=== PATIENT | female | born 1950 | race African-American/Black ===

== ENCOUNTER → 2017-03-11 | Outpatient (CLI) | payer OTHER ==
[~2017-03-11] MED LIST: BAYER CHEWABLE81 MG PO; CENTRUM SILVER1 EAC4 PO; COREG CR20 MG PO; FEOSOL BIFERA 228 MG PO; FISH OIL 1,001000 M1 PO; HAWTHORN BERRY500 MG PO; KYOLIC PO; METAMUCIL1 EAC1 PO; NIACIN 500 MG500 M1 PO; NORVASC10 MG PO; TRIAMTERENE/HCT1 CA1 PO; VITAMINC500 PO
== END ==
LOC: BC 09:01 → RAD 09:01 → BC 19:11
DX: N63 Unspecified lump in breast (principal)

== ENCOUNTER → 2017-11-01 | Outpatient (CLI) | payer OTHER | LOC: RAD 11:10 | DX: Z12.31 Encounter for screening mammogram for malignant neoplasm of breast (principal) ==

== ENCOUNTER → 2018-02-17 | Outpatient (CLI) | payer OTHER | LOC: MRI 05:49 | DX: S43.402A Unspecified sprain of left shoulder joint, initial encounter (principal); M19.012 Primary osteoarthritis, left shoulder; M25.412 Effusion, left shoulder; X58.XXXA Exposure to other specified factors, initial encounter; Y93.89 Activity, other specified; Y92.89 Other specified places as the place of occurrence of the external cause; Y99.8 Other external cause status ==

== ENCOUNTER 2018-11-29 12:48 | Emergency (ER) | payer OTHER ==
[~2018-11-29] VITALS: Ht 167.6 cm; Wt 72.6 kg
[2018-11-29 13:25] LABS: ABSOLUTE NEUTROPHILS 7.8 thou/uL (1.4-8.2); BASOPHILS 0.4 % (0.0-2.0); EOSINOPHILS 1.2 % (0.0-3.0); HEMATOCRIT 39.5 % (37.0-47.0); HEMOGLOBIN 13.3 gm/dL (12.0-15.0); LYMPHOCYTES 18.3 % (24.0-44.0); MCH 30.9 pg (26.0-34.0); MCHC 33.7 g/dL (28.0-37.0); MCV 91.7 fL (80.0-100.0); MONOCYTES 5.9 % (1.0-8.0); POLYS 74.2 % (36.0-66.0); RBC 4.31 mil/uL (4.20-5.00); RDW 15.2 % (10.5-14.5); WBC 10.6 thou/uL (4.0-11.0)
[2018-11-29 13:33] LABS: ANION GAP 7 mmol/L (7-16); BUN 11 mg/dL (7-18); CHLORIDE 100 mmol/L (98-107); CO2 28 mmol/L (21-32); CREATININE 0.7 mg/dL (0.6-1.0); GLUCOSE 117 mg/dL (74-106); POTASSIUM 4.1 mmol/L (3.5-5.1)
[2018-11-29 13:35] LABS: SODIUM 135 mmol/L (136-145)
[2018-11-29 13:41] LABS: TROPONIN-I <0.06 ng/mL (<0.06)
[2018-11-29 14:22] LABS: PLATELET COUNT 410 thou/uL (150-400)
[2018-11-29 14:23] LABS: ANISOCYTOSIS 1+
[2018-11-29 14:50] VITALS: BP 144/65
--- NOTE | 2018-11-30 09:37 | EKG ---
[place] [address] [facility] [place] [address] ELECTROCARDIOGRAM REPORT Name: MACEYMARTINEZ PHILIP Room #: DEP [facility]#: [id number] Admission: 11/29/18 Attend Phys: Discharge: 11/29/18 Date of : 50 Report #: [id number] THIS REPORT FOR: //name// [facility] ED Test Date: 2018-11-29 Test Time: 12:57:18 Pat Name: MARTINEZ CHOUDHURY Department: Room: Gender: F Results Technician: TSTORCK : 1950 Requested By: Nimesh Daniels Order Number: [id number] MD: Jhonny Billingsley Measurements Intervals [place] Rate: 84 P: 67 [place]: 160 QRS: -19 QRSD: 98 T: 72 QT: 368 QTc: 436 Interpretive Statements Sinus rhythm Multiple ventricular premature complexes Nonspecific ST and T wave abnormality Compared to ECG 12/06/2013 19:15:25 Ventricular premature complex(es) now present Nonspecific change in the ST and T-wave segments Electronically Signed On 11-30-2018 9:37:23 [facility] CNS by Jhonny Billingsley [email or web address] <ELECTRONICALLY SIGNED> By: Jhonny Billingsley MD, [facility] 11/30/18 0937 [id number] Jhonny Billingsley MD, [facility] /EPI
== END 2018-11-29 15:09 | disposition home or self-care (01) ==
LOC: ER 12:48
PROVIDERS: Nurse Practitioner
DX: R00.2 Palpitations (principal); I10 Essential (primary) hypertension; E03.9 Hypothyroidism, unspecified

== ENCOUNTER → 2018-12-25 | Outpatient (CLI) | payer OTHER ==
--- NOTE | 2018-12-25 14:26 | 2DMMODE ---
[facility] [place] [address] 2 D/M-MODE ECHOCARDIOGRAM Name: MACEYMARTINEZ PALACIOS Room #: REG COUNTS INCLUDE 234 BEDS AT THE [facility]#: [id number] ������������� Admission: 12/25/18 ������������� Attend Phys: Jac Motley MD Discharge: ��� ������������� ��� Date of : 50 Date of Service: 12/25/18 1426 �� Report #: [id number] �������� ��������������������������������������������[id number] THIS REPORT FOR: //name// APPROVED REPORT Study performed: 12/25/2018 13:22:12 EXAM: Comprehensive 2D, Doppler, and color-flow Echocardiogram Patient Location: Out-Patient Room #: Echo lab 2 Status: routine BSA: 1.82 HR: 71 bpm BP: 124/76 mmHg Rhythm: NSR Other Information Study Quality: Good Indications Palpitations Hypertension/HDD 2D Dimensions RVDd: 30.94 mm IVSd: 10.91 (7-11mm) LVOT Diam: 22.10 (18-24mm) LVDd: 47.91 mm PWd: 10.12 (7-11mm) Ascending Ao: 27.28 (22-36mm) LVDs: 28.97 (25-40mm) Aortic Root: 28.43 mm IVC: 19.00 mm Volumes Left Atrial Volume (Systole) Single Plane 4CH: 75.18 mL Single Plane 2CH: 56.50 mL LA ESV Index: 39.00 mL/m2 Aortic Valve AoV Peak Francesco.: 1.92 m/s AO Peak Gr.: 14.72 mmHg LVOT Max P.93 mmHg LVOT Max V: 1.22 m/s CINDA Vmax: 2.43 cm2 AI Vmax: 4.36 m/s AI Love: 2.38 m/s2 AI PHT: 531.[address] [facility] [address] [place] [address] 2 D/M-MODE ECHOCARDIOGRAM Name: MARTINEZ CHOUDHURY Room #: REG COUNTS INCLUDE 234 BEDS AT THE [facility]#: [id number] ������������� Admission: 12/25/18 ������������� Attend Phys: Jac Motley MD Discharge: ��� ������������� ��� Date of : 50 Date of Service: 12/25/18 1426 �� Report #: [id number] �������� ��������������������������������������������[id number] Mitral Valve E/A Ratio: 0.7 MV Decel. Time: 197.15 ms MV E Max Francesco.: 0.70 m/s MV A Francesco.: 1.05 m/s MV PHT: 57.17 ms IVRT: 115.34 ms Pulmonary Valve PV Peak Francesco.: 1.02 m/s PV Peak Gr.: 4.17 mmHg Pulmonary Vein P Vein S: 0.51 m/s P Vein A: 0.34 m/s P Vein D: 0.38 m/s P Vein A Dur.: 101.5 msec P Vein S/D Ratio: 1.34 Tricuspid Valve TR Peak Francesco.: 2.53 m/s TR Peak Gr.: 25.68 mmHg PA Pressure: 30.00 mmHg Left Ventricle The left ventricle is normal size. There is normal LV segmental wall motion. There is normal left ventricular wall thickness. The left ventricular systolic function is normal. The left ventricular ejection fraction is within the normal range. LVEF is 60-65%. Grade I - abnormal relaxation pattern. Right Ventricle The right ventricle is normal size. The right ventricular systolic function is normal. Atria Left atrium is dilated. Right atrium is at the upper limits of normal. Aortic Valve The aortic valve is normal in structure. Mild aortic regurgitation. There is no aortic valvular stenosis. Mitral Valve The mitral valve is normal in structure. Mild mitral regurgitation. No evidence of mitral valve stenosis. Tricuspid Valve The tricuspid valve is normal in structure. There is trace tricuspid [address] [address] 2 D/M-MODE ECHOCARDIOGRAM Name: MARTINEZ CHOUDHURY PHILIP Room #: REG CL [facility]#: [id number] ������������� Admission: 12/25/18 ������������� Attend Phys: Jac Motley MD Discharge: ��� ������������� ��� Date of : 50 Date of Service: 12/25/18 1426 �� Report #: [id number] �������� ��������������������������������������������[id number] regurgitation. Estimated PAP 30 mmHg. There is no pulmonary hypertension. Pulmonic Valve The pulmonary valve is normal in structure. Trace pulmonic regurgitation. Great Vessels The aortic root is normal in size. IVC is normal in size and collapses >50% with inspiration. Pericardium There is no pericardial effusion. <Conclusion> The left ventricle is normal size. There is normal left ventricular wall thickness. The left ventricular systolic function is normal. Grade I - abnormal relaxation pattern. The right ventricle is normal size. Left atrium is dilated. Mild aortic regurgitation. Mild mitral regurgitation. There is trace tricuspid regurgitation. Estimated PAP 30 mmHg. ��������������������������������������������� <ELECTRONICALLY SIGNED> ���������������������������������������� By: Jac Motley MD ��������������������������������������������� 12/25/18 1426 1426 1426 Jac Motley MD /INF
--- NOTE | 2018-12-25 15:04 | EXE ---
[facility] [place] [address] STRESS ECHOCARDIOGRAM Name: MARTINEZ CHOUDHURY Room #: REG CL [facility]#: [id number] ������������� Admission: 12/25/18 ������������� Attend Phys: Jac Motley MD Discharge: ��� ������������� ��� Date of : 50 Date of Service: 12/25/18 1503 �� Report #: [id number] �������� ��������������������������������������������[id number] THIS REPORT FOR: //name// APPROVED REPORT Study performed: 12/25/2018 13:43:23 Exam: Stress Echocardiogram Indication: Palpitations , Hypertension Patient Location: Out-Patient Stress Nurse: Tammy Leal RN Room #: Echo lab 2 Status: routine Ht: 5 ft 6 in HR: 71 bpm BP: 124/76 mmHg Rhythm: NSR Medical History Medical History: HTN Allergies: No known drug allergies Cardiac Risk Factors: HTN, FHX of CAD Exercise History: Physically active Procedure The patient underwent an Exercise Stress Test using the Dandy Protocol. Blood pressure, heart rate, and EKG were monitored. An Echocardiogram was performed by ecg technician in four stages in quad fashion. At peak stress, four selected images were obtained and placed side by side with resting images for comparison. Stress Test Details Stress Test: Exercise stress testing was performed using a Dandy protocol. HR Resting HR: 71 bpm Max Heart Rate (APMHR): 152 bpm Max HR Achieved: 162 bpm Target HR (85% APMHR): 129 bpm % of APMHR: 106 Recovery HR: 82 bpm HR response to stress: Normal HR response to stress BP Resting BP: 124/76 mmHg Max BP: 180/82 mmHg Recovery BP: 124/[address] [facility] [address] [place] [address] STRESS ECHOCARDIOGRAM Name: MARTINEZ CHOUDHURY Room #: REG CL [facility]#: [id number] ������������� Admission: 12/25/18 ������������� Attend Phys: Jac Motley MD Discharge: ��� ������������� ��� Date of : 50 Date of Service: 12/25/18 1503 �� Report #: [id number] �������� ��������������������������������������������[id number] BP response to stress: Normal blood pressure response to stress. ECG Resting ECG: Sinus Rhythm Stress ECG: Sinus Rhythm, nonspecific ST-T abnormalities ST Change: Non-ischemic Clinical Reason for Termination: Maximal effort Exercise duration: 6 min 17 sec Highest Stage Achieved: Stage 3: 3.4 mph at 14% grade. Exercise capacity: 7.7 METs Overall Exercise Capacity for Age: Average Pre-Stress Echo The resting Echocardiogram showed normal left ventricular contractility with an estimated Ejection Fraction of about >55%. Normal wall motion in all segments on baseline images. Post-Stress Echo The stress Echocardiogram showed normal left ventricular contractility with an estimated Ejection Fraction of about 60-65%. Normal augmentation of wall motion in all segments on post stress images. Clinical Normal augmentation of myocardial wall segments using a 17 segment model. No clinical or ECG evidence for ischemia. Conclusion Clinical Response: Non-ischemic Exercise Capacity: Average Stress ECG Response: Non-ischemic Stress Echo Images: Non-ischemic The left ventricle is normal in size and wall thickness in both the rest and stress images. No prior study available for comparison. Other Information Study Quality: Good <Conclusion> [facility] [address] [place] [address] STRESS ECHOCARDIOGRAM Name: MARTINEZ CHOUDHURY [id number] ������������� Admission: 12/25/18 ������������� Attend Phys: Jac Motley MD Discharge: ��� ������������� ��� Date of : 50 Date of Service: 12/25/18 1503 �� Report #: [id number] �������� ��������������������������������������������[id number] The left ventricle is normal in size and wall thickness in both the rest and stress images. ��������������������������������������������� <ELECTRONICALLY SIGNED> ���������������������������������������� By: Jac Motley MD ��������������������������������������������� 12/25/18 1503 150 150 Jac Motley MD /INF
== END ==
LOC: CV 12:59
DX: I08.0 Rheumatic disorders of both mitral and aortic valves (principal); I10 Essential (primary) hypertension; Z82.49 Family history of ischemic heart disease and other diseases of the circulatory system

== ENCOUNTER → 2019-01-26 | Outpatient (CLI) | payer OTHER | LOC: RAD 09:13 | DX: Z12.31 Encounter for screening mammogram for malignant neoplasm of breast (principal) ==

== ENCOUNTER → 2019-09-25 | Outpatient (CLI) | payer OTHER | LOC: CAT 08:53 | DX: Z13.6 Encounter for screening for cardiovascular disorders (principal); E78.00 Pure hypercholesterolemia, unspecified; I25.10 Atherosclerotic heart disease of native coronary artery without angina pectoris ==

== ENCOUNTER → 2019-11-20 | Outpatient (CLI) | payer OTHER | LOC: ULTRA 08:21 | DX: K76.0 Fatty (change of) liver, not elsewhere classified (principal); K76.89 Other specified diseases of liver ==

== ENCOUNTER → 2020-05-09 | Outpatient (CLI) | payer OTHER | LOC: BC 09:00 | PROVIDERS: ATTEND Family Medicine | DX: Z12.31 Encounter for screening mammogram for malignant neoplasm of breast (principal) ==

== ENCOUNTER → 2020-08-25 | Outpatient (CLI) | payer OTHER | LOC: SJCVC 10:19 | PROVIDERS: ATTEND Internal Medicine Cardiovascular Disease | DX: I10 Essential (primary) hypertension (principal); E78.00 Pure hypercholesterolemia, unspecified; I35.1 Nonrheumatic aortic (valve) insufficiency; R00.2 Palpitations; R60.9 Edema, unspecified; Z79.899 Other long term (current) drug therapy ==

== ENCOUNTER → 2021-05-19 | Outpatient (CLI) | payer OTHER | END | disposition home or self-care (01) | LOC: ULTRA 05-13 08:53 | PROVIDERS: ATTEND Family Medicine | DX: R10.13 Epigastric pain (principal) ==

== ENCOUNTER → 2021-05-25 | Outpatient (CLI) | payer OTHER | LOC: BC 09:00 | PROVIDERS: ATTEND Family Medicine | DX: Z12.31 Encounter for screening mammogram for malignant neoplasm of breast (principal) ==

== ENCOUNTER → 2021-08-18 | Outpatient (CLI) | payer OTHER ==
[~2021-08-18] VITALS: Ht 170.2 cm; Wt 74.8 kg
[~2021-08-18] MED LIST changes: +CRESTOR5 MG PO; +DOXYCYCLINE HY100 M4 PO; +FISH OIL 1,0001 EAC9 PO; +PROTONIX40 M2 PO; +SYNTHROID88 MCG PO
--- NOTE | 2021-08-18 10:50 | NUR ---
CONSULT [id number] WAS COMPLETED BY THIS [employer] RECORD CLERK. PATIENT WAS GIVEN THE INFORMATION AND EDUCATED REGARDING HAVING A DPOA OR ADVANCED DIRECTIVE. SHE SAID HER IS THE PERSON THAT SHE TRUSTS TO MAKE HER DECISIONS AT THIS TIME.
--- NOTE | 2021-08-20 17:06 | PATH ---
[facility] [place] [address] [place] [address] PATHOLOGY RPT PROCEDURE Name: MARTINEZ CHOUDHURY Room #: REG ANNIEKrysta Lynn.#: [id number] Admission: 08/18/21 Date of : 50 Discharge: Report #: [id number] Path Case #: [id number] [facility] Accession Number: [id number] . 01 Material submitted: . PART A: duodenum - DUODENUM BACILLI PART B: stomach - ANTRUM H. PYLORI PART C: esophagus - ESOPHAGUS R/O LAILA . 01 Clinical history: . EGD POSSIBLE LAILA, ESOPHAGITIS, HIATAL HERNIA . 02 Diagnosis: A. Small bowel mucosa, duodenum, endoscopic biopsy: - No significant diagnostic abnormalities present. - Negative for villous blunting or increase in intraepithelial lymphocytes. . B. Gastric mucosa, antrum, rule out H. pylori, endoscopic biopsy: - Mild chronic gastritis with features of reactive gastropathy. - Negative for intestinal metaplasia or atrophy. - Negative for Helicobacter pylori (properly controlled immunohistochemical stain performed). . C. Squamous mucosa, esophagus, rule out Laila, endoscopic biopsy: - Mild active esophagitis. - Negative for intestinal metaplasia or dysplasia. - No significant acute inflammatory component or ulceration identified (please see comment). . (IUV:log getter; 08/19/2021) MBR 08/19/2021 1555 Local . 02 Comment: C. A GMS fungal special stain is ordered on block C1 and the results of this will be reported in an addendum to follow. (IUV:log getter; 08/19/2021) . 02 Addendum: . This addendum is issued subsequent to reviewing a properly controlled GMS fungal special stain performed on block C1. It shows fungal hyphal elements present focally within the surface epithelium supporting a fungal etiology. The originally rendered diagnosis is further refined as follows: . C. Squamous mucosa, esophagus R/O Laila, endoscopic biopsy: [facility] [address] [place] [address] PATHOLOGY RPT PROCEDURE Name: MARTINEZ CHOUDHURY [id number]mission: 08/18/21 Date of : 50 Discharge: Report #: [id number] Path Case #: [id number] - Mild active esophagitis with rare fungal hyphae within the surface epithelium, compatible with fungal etiology. - Negative for intestinal metaplasia or dysplasia. - No significant acute inflammatory component or ulceration identified. (IUV:yazmin; 08/20/2021) . . Professional services performed by [facility] at [facility], [address] [facility] , [place] [address]. [facility] at [address] [place] [address], [address], [place] [address]. QMS/08/20/2021 Addendum Electronically Signed by Janine Rivas MD, Pathologist . 02 Electronically signed: . Janine Rivas MD, Pathologist NPI- [id number] . 01 Gross description: . A. The specimen is received in formalin, labeled "Martinez Jasbir, duodenum bacilli". Received are two segments of pale jenkins tissue measuring 0.3 and 0.5 cm in maximum dimensions. The specimen is submitted entirely in cassette A1. . B. The specimen is received in formalin, labeled "Martinez Jasbir, antrum". Received are two segments of pale jenkins tissue measuring 0.3 and 0.4 cm in maximum dimensions. The specimen is submitted entirely in cassette B1. . C. The specimen is received in formalin, labeled "Martinez Jasbir, esophagus". Received is a segment of pale jenkins tissue measuring 0.4 cm in maximum dimensions. The specimen is submitted entirely in cassette C1. (CAA; 08/18/2021) QAC/QAC 08/18/[address] [place] [address] . 02 Pathologist provided ICD-10: K29.50, K20.90 . 02 CPT . 571087, 051714, 954308, [id number], [id number] Specimen Comment: A courtesy copy of this report has been sent to [phone] Specimen Comment: [id number] Specimen Comment: Report sent to / DR JAIN Specimen Comment: A duplicate report has been generated due to demographic updates. Performed at: [address] [facility] [address], [place], [place] [id number] [facility] [address] [place] [address] PATHOLOGY RPT PROCEDURE Name: MARTINEZ CHOUDHURY Room #: REG CLI Leah.#: [id number] Admission: 08/18/21 Date of : 50 Discharge: Report #: [id number] Path Case #: [id number] MD Artur Leon MD Phone: [phone] Performed at: [address] [id number] MD Janine Rivas MD Phone: [phone]
== END | disposition home or self-care (01) ==
LOC: GI 09:11
PROVIDERS: ATTEND Internal Medicine Gastroenterology
DX: R10.13 Epigastric pain (principal); K31.9 Disease of stomach and duodenum, unspecified; K29.50 Unspecified chronic gastritis without bleeding; K21.00 Gastro-esophageal reflux disease with esophagitis, without bleeding; K44.9 Diaphragmatic hernia without obstruction or gangrene; I10 Essential (primary) hypertension; E78.5 Hyperlipidemia, unspecified; E03.9 Hypothyroidism, unspecified; Z79.899 Other long term (current) drug therapy; Z98.890 Other specified postprocedural states; Z91.040 Latex allergy status
CPT/HCPCS: 62110; 62900

== ENCOUNTER → 2021-08-25 | Outpatient (CLI) | payer OTHER | LOC: SJCVC 09:35 | PROVIDERS: ATTEND Internal Medicine Cardiovascular Disease | DX: I10 Essential (primary) hypertension (principal); E78.00 Pure hypercholesterolemia, unspecified; E78.5 Hyperlipidemia, unspecified; E03.9 Hypothyroidism, unspecified; I35.1 Nonrheumatic aortic (valve) insufficiency; R93.1 Abnormal findings on diagnostic imaging of heart and coronary circulation; R00.2 Palpitations; R60.9 Edema, unspecified; F12.90 Cannabis use, unspecified, uncomplicated; Z79.899 Other long term (current) drug therapy; Z72.89 Other problems related to lifestyle ==